=== PATIENT | female | born 1985 | race Caucasian/White ===

== ENCOUNTER 2020-10-02 06:41 | Inpatient (IN) | payer SELFPAY ==
[2020-10-02 06:50] VITALS: BMI 24.3
[2020-10-02] MEDS ORDERED: Ondansetron PF 4 MG/2 ML Vial IVP PRN (08:49)
[2020-10-02] MEDS ORDERED: Ondansetron ODT 4 MG TAB PO PRN (08:49)
--- NOTE | 2020-10-02 09:23 | PDOC.HHP ---
Hospitalist HPI - History of Present Illness Right hand pain History of Present Illness: PCP: None The patient is a 34-year-old female with no significant past medical history that presented to the emergency department via transfer from [facility] for the above complaint. The patient reports that she suffered a feral cat bite to her right hand approximately 2 to 3 days ago. She states that the cat was wild, and is unable to locate the cat. She reports that over the past several days, she has experienced increased swelling redness and pain to her right thumb hand and forearm. She denies any fever or chills. She denies any abdominal pain, nausea, vomiting, diarrhea. She has no other complaints at this time. In the [facility], the patient received vancomycin IVPB and Unasyn IVPB and 1 L normal saline. She was given rabies immunoglobulin and started on the rabies vaccination schedule. She also had her tetanus updated. The ER MD consulted Dr. Mitchell, who is a hand surgeon that recommended starting Zosyn and continuing vancomycin. He agreed to see the patient this afternoon and take the patient to the OR for incision and drainage and debridement. ED Course: Direct admit to the floor. Hospitalist ROS - Review of Systems Constitutional: denies: fever, chills Respiratory: denies: cough, shortness of breath, hemoptysis Cardiovascular: denies: chest pain, palpitations, edema, light headedness Gastrointestinal: denies: nausea, vomiting, abdominal pain, diarrhea Genitourinary: denies: dysuria, hematuria Musculoskeletal: reports: hand pain (Right hand pain, primarily with thumb movement.) Skin: reports: rash (Redness right palm extending up the palmar surface of the forearm) Neurological: denies: weakness, incoordination All other systems reviewed; all pertinent +/- noted in HPI/Subj - Medication Medications: None Allergies: No known drug allergies Hospitalist History - Past Medical History Source: patient, family, RN notes reviewed Cardiac: reports: no pertinent history Pulmonary: reports: no pertinent history [employer]ER: reports: no pertinent history Gastrointestinal: reports: no pertinent history - Past Surgical History Past Surgical History: reports: no pertinent history - Family History Other Family History: Noncontributory to this case. - Social History Smoking Status: Never smoker Alcohol: reports: None Drugs: reports: none Living Situation: With Family Activity level: independent ambulation - Exam General Appearance: NAD, awake alert. negative: ill appearing Eye: anicteric sclera ENT: normocephalic atraumatic Neck: supple, symmetric Heart: RRR, no murmur, no gallops, no rubs, normal peripheral pulses Respiratory: CTAB, no wheezes, no rales, no ronchi, normal chest expansion, no tachypnea Gastrointestinal: soft, non-tender, non-distended, no bruit, no guarding, no rigidity Extremities: negative: no edema (Right hand swelling and erythema primarily to the thenar eminence, streaking up the palmar aspect of the forearm to the elbow, decreased range of motion of the thumb, mildly tender to palpation. 2 puncture wounds on the thenar eminence of the right hand.) Neurological: no weakness Psychiatric: normal affect, A&O x 3 Hospitalist Results - Labs Lab results: WBCs 20.6 CRP 5.87 Sodium 132 Potassium 4.2 Hospitalist H&P A/P - Problem (1) Tenosynovitis of right hand Code(s): M65.9 - SYNOVITIS AND TENOSYNOVITIS, UNSPECIFIED Status: Acute (2) Cellulitis of right hand Code(s): L03.113 - CELLULITIS OF RIGHT UPPER LIMB Status: Acute (3) Cat bite Code(s): W55.01XA - BITTEN BY CAT, INITIAL ENCOUNTER Status: Acute (4) Leukocytosis Code(s): D72.829 - ELEVATED WHITE BLOOD CELL COUNT, UNSPECIFIED Status: Acute - Plan Plan: 34/F with no significant PMH presents for right hand pain. Admit to surgical floor, inpatient status. Expected length of stay greater than 2 midnights. Presented stable vital signs. WBCs 20.6, CRP 5.87 Received tetanus, rabies immunoglobulin and initial rabies vaccination shot. #Tenosynovitis of the right hand Dr. Mitchell consulted by [facility], agreed to take to OR today. NPO, last meal at 0030. Continue Vancomycin, add Zosyn IVPB. continue rabies vaccination schedule. IVF, morphine and zofran prn. Repeat CRP, BMP and CBC in am. Consult WCT and PT. #Cellulitis of right hand Plan as stated in problem #1 #Cat bite Continue rabies vaccination schedule. First dose on 1110 Second dose on 1113 Third dose on 1117 Fourth dose on 1124 #Leukocytosis Likely related to problem #1 and #2. SCDs for DVT prophylaxis. Pepcid for GI prophylaxis. Full code. Discussed the case with Dr. Alicea.
[2020-10-02] MEDS: Piperacillin/Tazobactam 3.375 GM in Sodium Chloride 0.9% 100 ML IVPB SCH ×3 (10:20→22:50)
[2020-10-02] MEDS: Famotidine/PF 20 mg/2ml Vial SLOW IVP SCH ×2 (10:20→20:17)
[2020-10-02] MEDS: Sodium Chloride 0.9% 1,000 ML IV SCH ×2 (10:20→17:49)
[2020-10-02] MEDS ORDERED: Ondansetron PF 4 MG/2 ML Vial ONE (11:02)
[2020-10-02] MEDS ORDERED: PROPOFOL 200 MG/20 ML VIAL ONE (11:02)
[2020-10-02] MEDS ORDERED: Lidocaine 1% PF 5 ML VIAL ONE (11:02)
[2020-10-02] MEDS ORDERED: Dexamethasone 20 MG/5 ML VIAL ONE (11:02)
[2020-10-02 11:18] LABS: Anion Gap 11 mmol/L (10-20); BUN (Urea Nitrogen) 8 mg/dL (7.0-18.7); Calc. Creatinine Clearance 122 mL/min (70-130); Calcium 8.5 mg/dL (7.8-10.44); Carbon Dioxide 23 mmol/L (22-29); Chloride 107 mmol/L (98-107); Estimated GFR-MDRD Greater than 90; Glucose 88 mg/dL (70-105); Potassium 3.6 mmol/L (3.5-5.1); Sodium 137 mmol/L (136-145)
[2020-10-02] MEDS: Morphine 2 MG/ML VIAL SLOW IVP PRN ×2 (12:44→16:18)
[2020-10-02] MEDS ORDERED: Fentanyl 100 MCG/2 ML VIAL ONE (14:25)
[2020-10-02] MEDS ORDERED: Lidocaine 1% w/Epinephrine 1:100K 20 ML VIAL ONE (14:44)
--- NOTE | 2020-10-02 15:16 | CON ---
DATE OF CONSULTATION: 10/02/2020 HISTORY OF PRESENT ILLNESS: The patient is a 34-year-old female who was admitted earlier this morning after suffering a cat bite to a cat not belonging to her. However, the patient stated that animal control is involved with the case. She was seen in the ER early this morning, given antibiotics. She denies any other injury to the right hand. Physical Exam: Clinically she is resting comfortably in bed. She is awake and alert and oriented. She does not appear to be in any pain. right hand and wrist: She is guarded with the right hand. Right hand and wrist showed 2 puncture wounds over the thenar musculature. All fingers are neurovascularly intact and all flexor and extensor functions are grossly tact. No clinical signs of compartment syndrome. There is redness overlying the thenar musculature and extending down into the forearm. Fingers were neurovascularly intact. Compartments were all soft. ASSESSMENT AND PLAN: Right hand infection secondary to cat bite. Surgical and nonsurgical treatment options were reviewed and discussed by me with the patient today at bedside. I discussed all risks and goals associated with surgery. I recommended incision, drianage and washout of the right hand infection. The patient reports understanding and agrees to proceed. She will remain admitted to the medicine service and continue with IV antibiotics. Job ID: [id number] [facility]
--- NOTE | 2020-10-02 15:33 | OP ---
DATE OF PROCEDURE: 10/02/2020 PREOPERATIVE DIAGNOSIS: Right hand infection status post cat bite. POSTOPERATIVE DIAGNOSIS: Right hand infection status post cat bite. PROCEDURE PERFORMED: Incision and drainage and washout of right hand. CONCERT OR LECTURE HALL MANAGER: Rodrigo Contreras. TOURNIQUET TIME: 6 minutes. ESTIMATED BLOOD LOSS: Less than 10 mL. FINDINGS: Two puncture wounds over the thenar musculature region in the right hand. There was murky fluid within the subcutaneous tissue. SPECIMENS: Culture and sensitivities. IMPLANTS: Quarter-inch Corine drain. CONDITION: Stable. INDICATIONS FOR PROCEDURE: The patient is a 34-year-old Vietnamese-speaking female who is accompanied by a male partner. She suffered a cat bite, that cat did not belong to her, it occurred on Thursday. She was admitted to the hospital early this morning, started on IV antibiotics. She was admitted under Medicine Service. She is resting comfortably in bed. On physical examination, she has redness and pain over the thenar muscular region and some mild streaking of the forearm. There is no adenopathy. All fingers are neurovascularly intact and all flexor and extensor tendon functions are grossly intact. There are no clinical signs of compartment syndrome. I recommended incision, drainage, and washout. I discussed all risks and goals associated with the surgery. I did inform the patient and her male partner that there is possibility she may need one more surgery and we would have to leave the Corine drain in place after today's surgery and potentially remove it. She will need to stay in the hospital for a few days for IV antibiotics. They voiced understanding and agreed to proceed with surgery. DESCRIPTION OF PROCEDURE: She was brought to the operating room and placed supine on the operating room table. Time-out was confirmed. Right upper extremity tourniquet was applied. General anesthesia was induced by the anesthesia team. Right upper extremity was exsanguinated by gravity. Tourniquet was inflated to 200 mmHg. There was local anesthetic infiltrated in the puncture wounds over the thenar muscular region. Then, they were opened bluntly and carefully using tenotomy scissors. Cultures were sent. 3 L of sterile saline were used to irrigate the wound and a quarter-inch [place] drain was placed within the puncture wounds in order to prevent premature closure. Tourniquet was deflated. All fingers including the thumb were vascularly intact. After tourniquet was deflated, a bulky dressing along with 4x4x, ABD pads, and Kerlix rolls applied over the wound, hand, and wrist. She was extubated and transported back to the recovery area in stable condition. INSTRUCTIONS: She will continue with IV antibiotics. I will follow her closely and plan on drain removal tomorrow, also perform hand soaks beginning tomorrow morning in clean warm tap water mixed with Hibiclens and she may do these 3 to 4 times a day for 30- to 40-minute interval and the nursing staff may change the dressing changes after each soak. Job ID: [id number]
[2020-10-02] MEDS: Vancomycin HCl 750 MG in Sodium Chloride 0.9% 250 ML 250 ML IVPB SCH ×2 (15:45→20:17)
[2020-10-02] MEDS ORDERED: Morphine 4 MG/ML VIAL SLOW IVP PRN (16:36)
[2020-10-02] MEDS ORDERED: HYDROcodone/Acetaminophen 5/325 mg Tablet PO PRN ×2 (16:45)
[2020-10-02] MEDS ORDERED: Ketorolac Tromethamine 30 MG/ML VIAL IVP SCH (18:00)
[2020-10-02] MEDS: Ibuprofen 200 MG TAB PO PRN (18:18)
[2020-10-02] MEDS: Acetaminophen 325 MG TAB PO PRN (18:18)
[2020-10-03] MEDS: Piperacillin/Tazobactam 3.375 GM in Sodium Chloride 0.9% 100 ML IVPB SCH ×4 (03:32→21:48)
[2020-10-03 06:07] LABS: #Lymphocytes 1.3 thou/uL (1.20-3.40); #Monocytes 0.3 thou/uL (0.11-0.59); #Neutrophils 13.4 thou/uL (1.40-6.50); %Basophils 0.1 % (0.0-1.0); %Eosinophils 0.1 % (0.0-10.0); %Lymphocytes 8.9 % (21.0-51.0); %Monocytes 1.8 % (0.0-10.0); %Neutrophils 89.2 % (42.0-75.0); Hemoglobin 10.6 g/dL (12.0-16.0); Mean Corpuscular HGB CONC 32.2 g/dL (32.0-36.0); Mean Corpuscular Hemoglobin 28.4 pg (27.0-31.0); Mean Corpuscular Volume 88.1 fL (78.0-98.0); Mean Platelet Volume 8.9 fL (7.4-10.4); Platelet Count 205 thou/uL (130-400); Red Blood Cell (RBC) Count 3.74 mill/uL (4.20-5.40)
[2020-10-03] MEDS: Sodium Chloride 0.9% 1,000 ML IV SCH (06:07)
[2020-10-03] MEDS: Vancomycin HCl 750 MG in Sodium Chloride 0.9% 250 ML 250 ML IVPB SCH ×2 (06:07→13:44)
[2020-10-03 06:24] LABS: Anion Gap 11 mmol/L (10-20); BUN (Urea Nitrogen) 6 mg/dL (7.0-18.7); Calc. Creatinine Clearance 134 mL/min (70-130); Calcium 8.3 mg/dL (7.8-10.44); Carbon Dioxide 21 mmol/L (22-29); Chloride 109 mmol/L (98-107); Estimated GFR-MDRD Greater than 90; Glucose 116 mg/dL (70-105); Potassium 4.1 mmol/L (3.5-5.1); Sodium 137 mmol/L (136-145)
--- NOTE | 2020-10-03 07:26 | PDOC.HOSPP ---
- Subjective Encounter Date: 10/03/20 Encounter Time: 08:21 Subjective: Patient seen and examined. No new complaints. No overnight events. The patient is smiling and says she is feeling well. She asked about rabies vaccination schedule. She reports pain is well controlled to her hand. She denies any weakness. Denies any fever, chills, abdominal pain, N/V. Denies Chest pain or SOB. Request stools softners as needed. - Objective Vital Signs & Weight: Vital Signs (12 hours) Temp Pulse Resp BP Pulse Ox 10/03/20 04:07 98.1 F 60 16 115/64 96 10/03/20 00:10 97.7 F 67 16 120/76 98 10/02/20 20:50 98.3 F 77 16 106/68 97 10/02/20 20:00 97 Weight Weight 120 lb 6.4 oz I&O: 10/02/20 10/03/20 10/04/20 06:59 06:59 06:59 Intake Total 3880 Balance 3880 Result Diagrams: 10/03/20 05:43 10/03/20 05:43 Hospitalist ROS - Review of Systems Constitutional: denies: fever, chills Respiratory: denies: cough, shortness of breath, hemoptysis Cardiovascular: denies: chest pain, palpitations, edema Gastrointestinal: denies: nausea, vomiting, abdominal pain, diarrhea, melena, hematochezia Genitourinary: denies: dysuria, hematuria Neurological: denies: weakness, change in speech All other systems reviewed; all pertinent +/- noted in HPI/Subj - Medication Medications: Active Medications Generic Name Dose Route Start Last Admin Trade Name Juanq PRN Reason Stop Dose Admin Acetaminophen 650 mg 10/02/20 08:49 10/02/20 18:18 Acetaminophen 325 Mg Tab PO 650 mg Q4H PRN Administration Headache/Fever/Mild Pain (1-3) Hydrocodone Bitart/Acetaminophen 2 tab 10/02/20 16:45 10/02/20 16:43 Hydrocodone/Acetaminophen 5/325 Mg Tablet PO 2 tab Q6H PRN Administration Pain Famotidine 20 mg 10/02/20 09:00 10/02/20 20:17 Famotidine/Pf 20 Mg/2ml Vial SLOW IVP 20 mg Q12HR GABBY Administration Piperacillin Sod/Tazobactam 100 mls @ 200 mls/hr 10/02/20 10:00 10/03/20 03:32 Sod 3.375 gm/ Sodium Chloride IVPB 100 mls 0400,1000,1600,2200 GABBY Administration Vancomycin HCl 750 mg/ Sodium 250 mls @ 250 mls/hr 10/02/20 13:00 10/03/20 06:07 Chloride IVPB 250 mls 0500,1300,2100 GABBY Administration Sodium Chloride 1,000 mls @ 100 mls/hr 10/02/20 09:00 10/03/20 06:07 Normal Saline 0.9% IV 1,000 mls .Q10H GABBY Administration Ibuprofen 400 mg 10/02/20 16:38 10/02/20 18:18 Ibuprofen 200 Mg Tab PO 400 mg Q4H PRN Administration Pain Ondansetron HCl 4 mg 10/02/20 08:49 10/02/20 16:44 Ondansetron Pf 4 Mg/2 Ml Vial IVP 4 mg Q6H PRN Administration Nausea/Vomiting - Exam General Appearance: NAD, awake alert. negative: ill appearing General - other findings: smiling Eye: anicteric sclera ENT: normocephalic atraumatic Neck: supple, symmetric Heart: RRR, no murmur, no gallops, no rubs, normal peripheral pulses Respiratory: CTAB, no wheezes, no rales, no ronchi, normal chest expansion Gastrointestinal: soft, non-tender, normal bowel sounds, no guarding Extremities: no cyanosis Extremities - other findings: right hand wrapped kerlex, fingers full ROM, sensation intact Neurological: cranial nerve grossly intact, no focal deficits Psychiatric: normal affect, A&O x 3 Hosp A/P (1) Tenosynovitis of right hand Code(s): M65.9 - SYNOVITIS AND TENOSYNOVITIS, UNSPECIFIED Status: Acute (2) Cellulitis of right hand Code(s): L03.113 - CELLULITIS OF RIGHT UPPER LIMB Status: Acute (3) Cat bite Code(s): W55.01XA - BITTEN BY CAT, INITIAL ENCOUNTER Status: Acute (4) Leukocytosis Code(s): D72.829 - ELEVATED WHITE BLOOD CELL COUNT, UNSPECIFIED Status: Acute - Plan 34/F with no significant PMH presents for right hand pain. Admit to surgical floor, inpatient status. Expected length of stay greater than 2 midnights. Presented stable vital signs. WBCs 20.6, CRP 5.87 Received tetanus, rabies immunoglobulin and initial rabies vaccination shot. #Tenosynovitis of the right hand POD#1 D/C IVF, tolerating po intake well. Continue Vancomycin and Zosyn IVPB. Next rabies vaccine shot due on - Analgesia and antiemetics prn WCT per nursing, hot soaks with dressing changes. #Cellulitis of right hand Plan as stated in problem #1 #Cat bite Rabies vaccination schedule. First dose on 1110 Second dose on 1113 Third dose on 1117 Fourth dose on 1124 #Leukocytosis Likely related to problem #1 and #2. Improved, down to 15 from 20.6 SCDs for DVT prophylaxis. Pepcid for GI prophylaxis. Full code. Discussed the case with Dr. Alicea.
[2020-10-03] MEDS ORDERED: Senokot S 8.6-50 MG TAB PO PRN (08:21)
[2020-10-03] MEDS: Famotidine/PF 20 mg/2ml Vial SLOW IVP SCH ×2 (08:21→20:12)
[2020-10-03] MEDS ORDERED: FLU VACC QS2020-21(6MOS UP)/PF 60 MCG/0.5 ML SYRINGE IM ONE (12:00)
[2020-10-03 13:27] LABS: Vancomycin, Trough 8.9 ug/mL
[2020-10-03] MEDS: Vancomycin 1 GM in Premix Bag 1 BAG IVPB SCH (20:12)
[2020-10-04] MEDS: Piperacillin/Tazobactam 3.375 GM in Sodium Chloride 0.9% 100 ML IVPB SCH ×4 (03:58→21:12)
[2020-10-04] MEDS: Vancomycin 1 GM in Premix Bag 1 BAG IVPB SCH (03:58)
[2020-10-04 06:56] LABS: #Basophils 0.1 thou/uL (0.0-0.2); #Eosinphils 0.1 thou/uL (0.0-0.7); #Lymphocytes 3.6 thou/uL (1.20-3.40); #Monocytes 0.7 thou/uL (0.11-0.59); #Neutrophils 9.1 thou/uL (1.40-6.50); %Basophils 0.8 % (0.0-1.0); %Eosinophils 0.6 % (0.0-10.0); %Lymphocytes 26.7 % (21.0-51.0); %Neutrophils 66.9 % (42.0-75.0); Hemoglobin 10.1 g/dL (12.0-16.0); Mean Corpuscular HGB CONC 32.9 g/dL (32.0-36.0); Mean Corpuscular Hemoglobin 28.5 pg (27.0-31.0); Mean Corpuscular Volume 86.6 fL (78.0-98.0); Mean Platelet Volume 8.2 fL (7.4-10.4); Platelet Count 212 thou/uL (130-400); Red Blood Cell (RBC) Count 3.53 mill/uL (4.20-5.40); White Blood Cell (WBC) Count 13.5 thou/uL (4.8-10.8)
--- NOTE | 2020-10-04 07:20 | PDOC.HOSPP ---
- Subjective Encounter Date: 10/04/20 Encounter Time: 08:13 Subjective: Patient seen and examined. Reports some pleuritic pain to right ribs, intermittent with deep inhalation. Has no cardiovascular risk factors. Denies heart palpitations, light headedness, SOB, wheezing or cough/hemoptysis. Denies any abdominal pain, N/V or hematachezia/melena. Denies any dysuria or hematuria. Discussed likely costochondritis, has not had any ibuprofen for 24 hours, will give toradol IV x 1. Says her hand feels good, only pain when she uses it to reposition herself on the bed, says she gets throbbing pain for a minute. Denies numbness, tingling or weakness. Pain is well controlled. Discussed rabies vacci nation schedule and second injection is scheduled for tomorrow. Discussed improved WBCs. - Objective Vital Signs & Weight: Vital Signs (12 hours) Temp Pulse Resp BP Pulse Ox 10/04/20 03:56 98.6 F 77 16 118/76 96 10/03/20 23:42 98.0 F 80 16 131/76 99 10/03/20 20:00 99 10/03/20 19:26 98.2 F 70 16 130/82 99 Weight Admit Weight 120 lb 6.4 oz Weight 120 lb 6.4 oz I&O: 10/03/20 10/04/20 10/05/20 06:59 06:59 06:59 Intake Total 3880 2040 Balance 3880 2040 Result Diagrams: 10/04/20 06:49 10/04/20 06:49 Hospitalist ROS - Review of Systems Constitutional: denies: fever, chills Respiratory: denies: cough, shortness of breath, hemoptysis Cardiovascular: reports: chest pain (pleuritic). denies: palpitations, edema, light headedness Gastrointestinal: denies: nausea, vomiting, abdominal pain, diarrhea Genitourinary: denies: dysuria, hematuria Neurological: denies: weakness, incoordination - Medication Medications: Active Medications Generic Name Dose Route Start Last Admin Trade Name Freq PRN Reason Stop Dose Admin Acetaminophen 650 mg 10/02/20 08:49 10/02/20 18:18 Acetaminophen 325 Mg Tab PO 650 mg Q4H PRN Administration Headache/Fever/Mild Pain (1-3) Hydrocodone Bitart/Acetaminophen 2 tab 10/02/20 16:45 10/02/20 16:43 Hydrocodone/Acetaminophen 5/325 Mg Tablet PO 2 tab Q6H PRN Administration Pain Famotidine 20 mg 10/02/20 09:00 10/03/20 20:12 Famotidine/Pf 20 Mg/2ml Vial SLOW IVP 20 mg Q12HR GABBY Administration Piperacillin Sod/Tazobactam 100 mls @ 200 mls/hr 10/02/20 10:00 10/04/20 03:58 Sod 3.375 gm/ Sodium Chloride IVPB 100 mls 0400,1000,1600,2200 GABBY Administration Vancomycin HCl 1 gm/ Device 200 mls @ 200 mls/hr 10/03/20 21:00 10/04/20 03:58 IVPB 200 mls 0500,1300,2100 GABBY Administration Ibuprofen 400 mg 10/02/20 16:38 10/02/20 18:18 Ibuprofen 200 Mg Tab PO 400 mg Q4H PRN Administration Pain Morphine Sulfate 3 mg 10/02/20 16:36 10/03/20 12:53 Morphine 4 Mg/Ml Vial SLOW IVP 3 mg Q4H PRN Administration BREAKTHU PAIN Ondansetron HCl 4 mg 10/02/20 08:49 10/02/20 16:44 Ondansetron Pf 4 Mg/2 Ml Vial IVP 4 mg Q6H PRN Administration Nausea/Vomiting - Exam General Appearance: NAD, awake alert. negative: ill appearing General - other findings: comfortable, smiling Eye: anicteric sclera ENT: normocephalic atraumatic, moist mucosa Neck: supple, symmetric Heart: RRR, no murmur, no gallops, no rubs, normal peripheral pulses Respiratory: CTAB, no wheezes, no rales, no ronchi, normal chest expansion, no tachypnea Gastrointestinal: soft, non-tender, normal bowel sounds, no guarding, no rigidity Extremities: no cyanosis Extremities - other findings: RH kerlix gauze, palpable radial pulses, cap refill brisk, wiggles fingers Neurological: no focal deficits Psychiatric: normal affect, A&O x 3 Hosp A/P (1) Tenosynovitis of right hand Code(s): M65.9 - SYNOVITIS AND TENOSYNOVITIS, UNSPECIFIED Status: Acute (2) Cellulitis of right hand Code(s): L03.113 - CELLULITIS OF RIGHT UPPER LIMB Status: Acute (3) Cat bite Code(s): W55.01XA - BITTEN BY CAT, INITIAL ENCOUNTER Status: Acute (4) Leukocytosis Code(s): D72.829 - ELEVATED WHITE BLOOD CELL COUNT, UNSPECIFIED Status: Acute (5) Chest pain, pleuritic Code(s): R07.81 - PLEURODYNIA Status: Acute - Plan 34/F with no significant PMH presents for right hand pain. Admit to surgical floor, inpatient status. Expected length of stay greater than 2 midnights. Presented stable vital signs. WBCs 20.6, CRP 5.87 Received tetanus, rabies immunoglobulin and initial rabies vaccination shot. #Tenosynovitis of the right hand POD#2 Wound CX gram negative rods. D/C Vancomycin Continue Zosyn Next rabies vaccine shot#2 tomorrow. Analgesia and antiemetics prn WCT per nursing, hot soaks with dressing changes. #Cellulitis of right hand Plan as stated in problem #1 #Cat bite Rabies vaccination schedule. First dose on 1110 Second dose on 1113 Third dose on 1117 Fourth dose on 1124 #Leukocytosis Likely related to problem #1 and #2. Trending down at 13.5. #Pleuritic chest pain VSS, Exam benign, no CV risk factors, no signs of delayed transfusion reaction. EKG NSR. Likely costochondritis. Treat with toradol x 1 dose. SCDs for DVT prophylaxis. Pepcid for GI prophylaxis. Full code. Discussed the case with Dr. Alicea.
[2020-10-04 07:25] LABS: Anion Gap 12 mmol/L (10-20); BUN (Urea Nitrogen) 10 mg/dL (7.0-18.7); Calc. Creatinine Clearance 110 mL/min (70-130); Calcium 8.3 mg/dL (7.8-10.44); Carbon Dioxide 23 mmol/L (22-29); Chloride 107 mmol/L (98-107); Estimated GFR-MDRD Greater than 90; Glucose 86 mg/dL (70-105); Potassium 3.7 mmol/L (3.5-5.1); Sodium 138 mmol/L (136-145)
[2020-10-04] MEDS ORDERED: Ketorolac Tromethamine 30 MG/ML VIAL IVP SCH (07:30)
--- NOTE | 2020-10-04 08:18 | PRG ---
DATE OF SERVICE: 10/03/2020 SUBJECTIVE: The patient is seen today, postoperative day #1, incision and drainage and washout of right thumb, right hand infection secondary to a cat bite. She is doing well. She noticed significant improvement regarding overall right hand pain, undergoing surgery. Her pain is currently well controlled. She denies any numbness or tingling in the fingers of the right hand. She denies any fevers. PHYSICAL EXAMINATION: GENERAL: The patient is awake, alert, and oriented x3 and resting comfortably in bed. RIGHT HAND/WRIST: There is some redness and streaking of the forearm, which has improved compared to a preoperative examination; the wounds appeared to be healing well and there is no purulent drainage noted; she is nontender to palpation over the flexure tendons and able to flex and extend all fingers without difficulty or limitation; all fingers are neurovascularly intact and there is no adenopathy appreciated in the epitrochlear or axillary regions. Culture and sensitivities are pending. ASSESSMENT AND PLAN: Postoperative day #1, status post incision and drainage and washout, right hand, secondary to a cat bite. The patient's [place] drain was removed today. I instructed her to continue with hand soaks. She should continue with IV antibiotics. I would keep her in the hospital for another 2 to 3 days for IV antibiotics, certainly tailor the antibiotics according to the culture and sensitivity reports. If the patient continues to improve, she may follow up with me on an outpatient basis. My office is [phone]. She will certainly be discharged on oral antibiotics for a minimum of 7 to 10 days. Job ID: [id number]
[2020-10-04] MEDS: Famotidine/PF 20 mg/2ml Vial SLOW IVP SCH ×2 (08:24→21:10)
[2020-10-04] MEDS: Ibuprofen 200 MG TAB PO PRN (21:12)
[2020-10-04] MEDS: Acetaminophen 325 MG TAB PO PRN (21:13)
[2020-10-05] MEDS: Piperacillin/Tazobactam 3.375 GM in Sodium Chloride 0.9% 100 ML IVPB SCH ×4 (04:29→22:06)
[2020-10-05 05:19] LABS: #Basophils 0.1 thou/uL (0.0-0.2); #Eosinphils 0.1 thou/uL (0.0-0.7); #Lymphocytes 2.8 thou/uL (1.20-3.40); #Monocytes 0.7 thou/uL (0.11-0.59); #Neutrophils 5.7 thou/uL (1.40-6.50); %Eosinophils 1.2 % (0.0-10.0); %Lymphocytes 29.5 % (21.0-51.0); %Monocytes 7.2 % (0.0-10.0); Mean Corpuscular HGB CONC 33.4 g/dL (32.0-36.0); Mean Corpuscular Hemoglobin 28.4 pg (27.0-31.0); Mean Corpuscular Volume 85.2 fL (78.0-98.0); Mean Platelet Volume 8.4 fL (7.4-10.4); Platelet Count 230 thou/uL (130-400); RBC Distribution Width 11.9 % (11.5-14.5); Red Blood Cell (RBC) Count 3.51 mill/uL (4.20-5.40); White Blood Cell (WBC) Count 9.3 thou/uL (4.8-10.8)
[2020-10-05 05:40] LABS: Anion Gap 19 mmol/L (10-20); BUN (Urea Nitrogen) 7 mg/dL (7.0-18.7); Calc. Creatinine Clearance 127 mL/min (70-130); Calcium 7.5 mg/dL (7.8-10.44); Carbon Dioxide 20 mmol/L (22-29); Chloride 109 mmol/L (98-107); Estimated GFR-MDRD Greater than 90; Glucose 74 mg/dL (70-105); Potassium 3.3 mmol/L (3.5-5.1); Sodium 145 mmol/L (136-145)
--- NOTE | 2020-10-05 07:37 | PDOC.HOSPP ---
- Subjective Encounter Date: 10/05/20 Encounter Time: 07:51 Subjective: Patient seen and examined. No new complaints. No overnight events. Patient says pain well controlled. Denies any fever, chills, abdominal pain, N/V/D. No chest pain, SOB, or headaches. Discussed wound cx results and possibly being discharged tomorrow on oral antibiotics. - Objective Vital Signs & Weight: Vital Signs (12 hours) Temp Pulse Resp BP Pulse Ox 10/05/20 06:45 97.7 F 73 13 178/80 H 92 L 10/04/20 20:00 96 Weight Admit Weight 120 lb 6.4 oz Weight 120 lb 6.4 oz I&O: 10/04/20 10/05/20 10/06/20 06:59 06:59 06:59 Intake Total 2039 1789 Balance 2039 1789 Result Diagrams: 10/05/20 04:54 10/05/20 04:54 Hospitalist ROS - Review of Systems Constitutional: denies: fever, chills Respiratory: denies: cough, shortness of breath, hemoptysis Cardiovascular: denies: chest pain, palpitations, edema, light headedness Gastrointestinal: denies: nausea, vomiting, abdominal pain, diarrhea, constipation Genitourinary: denies: dysuria, hematuria Musculoskeletal: denies: hand pain Neurological: denies: weakness, incoordination All other systems reviewed; all pertinent +/- noted in HPI/Subj - Medication Medications: Active Medications Generic Name Dose Route Start Last Admin Trade Name Freq PRN Reason Stop Dose Admin Acetaminophen 650 mg 10/02/20 08:49 10/04/20 21:13 Acetaminophen 325 Mg Tab PO 650 mg Q4H PRN Administration Headache/Fever/Mild Pain (1-3) Hydrocodone Bitart/Acetaminophen 2 tab 10/02/20 16:45 10/02/20 16:43 Hydrocodone/Acetaminophen 5/325 Mg Tablet PO 2 tab Q6H PRN Administration Pain Famotidine 20 mg 10/02/20 09:00 10/04/20 21:10 Famotidine/Pf 20 Mg/2ml Vial SLOW IVP 20 mg Q12HR GABBY Administration Piperacillin Sod/Tazobactam 100 mls @ 200 mls/hr 10/02/20 10:00 10/05/20 04:29 Sod 3.375 gm/ Sodium Chloride IVPB 100 mls 0400,1000,1600,2200 GABBY Administration Ibuprofen 400 mg 10/02/20 16:38 10/04/20 21:12 Ibuprofen 200 Mg Tab PO 400 mg Q4H PRN Administration Pain Morphine Sulfate 3 mg 10/02/20 16:36 10/03/20 12:53 Morphine 4 Mg/Ml Vial SLOW IVP 3 mg Q4H PRN Administration BREAKTHU PAIN Ondansetron HCl 4 mg 10/02/20 08:49 10/02/20 16:44 Ondansetron Pf 4 Mg/2 Ml Vial IVP 4 mg Q6H PRN Administration Nausea/Vomiting - Exam General Appearance: NAD, awake alert. negative: ill appearing Eye: anicteric sclera Heart: RRR, no murmur, no gallops, no rubs, normal peripheral pulses Respiratory: CTAB, no wheezes, no rales, no ronchi, normal chest expansion, no tachypnea Gastrointestinal: soft, non-tender, no guarding, no rigidity Extremities - other findings: right hand kerlix, full ROM, flexion and extensor tendons intact Neurological: no focal deficits Psychiatric: normal affect, A&O x 3 Hosp A/P (1) Tenosynovitis of right hand Code(s): M65.9 - SYNOVITIS AND TENOSYNOVITIS, UNSPECIFIED Status: Acute (2) Cellulitis of right hand Code(s): L03.113 - CELLULITIS OF RIGHT UPPER LIMB Status: Acute (3) Cat bite Code(s): W55.01XA - BITTEN BY CAT, INITIAL ENCOUNTER Status: Acute (4) Leukocytosis Code(s): D72.829 - ELEVATED WHITE BLOOD CELL COUNT, UNSPECIFIED Status: Acute (5) Chest pain, pleuritic Code(s): R07.81 - PLEURODYNIA Status: Acute - Plan 34/F with no significant PMH presents for right hand pain. Admit to surgical floor, inpatient status. Expected length of stay greater than 2 midnights. Presented stable vital signs. WBCs 20.6, CRP 5.87 Received tetanus, rabies immunoglobulin and initial rabies vaccination shot. Blood pressure elevated and sp02 lower per documented VS last night. On assessment, patient has no signs of any distress. Pain well controlled, afebrile. Discussed with morning nurse, she agrees, will recheck VS this am and call to update me. #Tenosynovitis of the right hand POD#3 Wound CX Pasteurella Multocida Continue Zosyn Next rabies vaccine shot#2 today Analgesia and antiemetics prn WCT per nursing, hot soaks with dressing changes. Possible d/c tomorrow on oral abx. #Cellulitis of right hand Plan as stated in problem #1 #Cat bite Rabies vaccination schedule. First dose on 1110 Second dose on 1113 Third dose on 1117 Fourth dose on 1124 #Leukocytosis trending down, today 9.3 #Pleuritic chest pain resolved. SCDs for DVT prophylaxis. Pepcid for GI prophylaxis. Full code. Discussed the case with Dr. Alicea.
[2020-10-05] MEDS ORDERED: Rabies Vaccine Human 2.5 UNITS VIAL IM ONE (09:30)
[2020-10-05] MEDS: Famotidine/PF 20 mg/2ml Vial SLOW IVP SCH ×2 (10:08→22:05)
[2020-10-05] MEDS: Ibuprofen 200 MG TAB PO PRN (14:09)
[2020-10-06] MEDS: Piperacillin/Tazobactam 3.375 GM in Sodium Chloride 0.9% 100 ML IVPB SCH ×2 (04:02→10:14)
[2020-10-06] MEDS: Ibuprofen 200 MG TAB PO PRN ×2 (04:09→12:54)
[2020-10-06 06:27] LABS: #Basophils 0.1 thou/uL (0.0-0.2); #Eosinphils 0.2 thou/uL (0.0-0.7); #Lymphocytes 2.4 thou/uL (1.20-3.40); #Monocytes 0.7 thou/uL (0.11-0.59); #Neutrophils 6.1 thou/uL (1.40-6.50); %Basophils 1.1 % (0.0-1.0); %Eosinophils 2.5 % (0.0-10.0); %Lymphocytes 25.5 % (21.0-51.0); %Monocytes 7.1 % (0.0-10.0); %Neutrophils 63.8 % (42.0-75.0); Hemoglobin 10.8 g/dL (12.0-16.0); Mean Corpuscular HGB CONC 33.6 g/dL (32.0-36.0); Mean Corpuscular Volume 86.5 fL (78.0-98.0); Mean Platelet Volume 8.6 fL (7.4-10.4); Platelet Count 271 thou/uL (130-400); RBC Distribution Width 11.9 % (11.5-14.5); Red Blood Cell (RBC) Count 3.71 mill/uL (4.20-5.40); White Blood Cell (WBC) Count 9.5 thou/uL (4.8-10.8)
[2020-10-06 06:50] LABS: Anion Gap 12 mmol/L (10-20); BUN (Urea Nitrogen) 10 mg/dL (7.0-18.7); Calc. Creatinine Clearance 114 mL/min (70-130); Calcium 8.8 mg/dL (7.8-10.44); Carbon Dioxide 22 mmol/L (22-29); Chloride 106 mmol/L (98-107); Estimated GFR-MDRD Greater than 90; Glucose 98 mg/dL (70-105); Potassium 4.1 mmol/L (3.5-5.1); Sodium 136 mmol/L (136-145)
--- NOTE | 2020-10-06 07:15 | PDOC.HOSPP ---
- Subjective Encounter Date: 10/06/20 Encounter Time: 07:54 Subjective: Patient seen and examined. No new complaints. No overnight events. Denies any fever or chills. Reports hand is feeling good. Denies abominal pain, N/V/D. We discussed that she can discharge home today on oral antibiotics. - Objective Vital Signs & Weight: Vital Signs (12 hours) Temp Pulse Resp BP Pulse Ox 10/05/20 21:45 98.0 F 60 14 118/74 98 Weight Admit Weight 120 lb 6.4 oz Weight 120 lb 6.4 oz I&O: 10/05/20 10/06/20 10/07/20 06:59 06:59 06:59 Intake Total 1790 Balance 1790 Result Diagrams: 10/06/20 05:54 10/06/20 05:54 Hospitalist ROS - Review of Systems Constitutional: denies: fever, chills Respiratory: denies: cough, shortness of breath Cardiovascular: denies: chest pain, palpitations Gastrointestinal: denies: nausea, vomiting, abdominal pain, diarrhea Genitourinary: denies: dysuria, hematuria All other systems reviewed; all pertinent +/- noted in HPI/Subj - Medication Medications: Active Medications Generic Name Dose Route Start Last Admin Trade Name Freq PRN Reason Stop Dose Admin Acetaminophen 650 mg 10/02/20 08:49 10/04/20 21:13 Acetaminophen 325 Mg Tab PO 650 mg Q4H PRN Administration Headache/Fever/Mild Pain (1-3) Hydrocodone Bitart/Acetaminophen 2 tab 10/02/20 16:45 10/02/20 16:43 Hydrocodone/Acetaminophen 5/325 Mg Tablet PO 2 tab Q6H PRN Administration Pain Famotidine 20 mg 10/02/20 09:00 10/05/20 22:05 Famotidine/Pf 20 Mg/2ml Vial SLOW IVP 20 mg Q12HR GABBY Administration Piperacillin Sod/Tazobactam 100 mls @ 200 mls/hr 10/02/20 10:00 10/06/20 04:02 Sod 3.375 gm/ Sodium Chloride IVPB 100 mls 0400,1000,1600,2200 GABBY Administration Ibuprofen 400 mg 10/02/20 16:38 10/06/20 04:09 Ibuprofen 200 Mg Tab PO 400 mg Q4H PRN Administration Pain Morphine Sulfate 3 mg 10/02/20 16:36 10/03/20 12:53 Morphine 4 Mg/Ml Vial SLOW IVP 3 mg Q4H PRN Administration BREAKTHU PAIN Ondansetron HCl 4 mg 10/02/20 08:49 10/02/20 16:44 Ondansetron Pf 4 Mg/2 Ml Vial IVP 4 mg Q6H PRN Administration Nausea/Vomiting Sodium Chloride 10 ml 10/02/20 08:49 10/05/20 22:06 Flush - Normal Saline 10 Ml Syringe IVF 10 ml PRN PRN Administration Saline Flush - Exam General Appearance: NAD, awake alert. negative: ill appearing Heart: RRR, no murmur, no gallops, no rubs, normal peripheral pulses Respiratory: CTAB, no wheezes, no rales, no ronchi, normal chest expansion Gastrointestinal: soft, non-tender Extremities - other findings: right hand kerlix, full ROM flexor/extensor tendons, sensation intact Psychiatric: normal affect, A&O x 3 Hosp A/P (1) Tenosynovitis of right hand Code(s): M65.9 - SYNOVITIS AND TENOSYNOVITIS, UNSPECIFIED Status: Acute (2) Cellulitis of right hand Code(s): L03.113 - CELLULITIS OF RIGHT UPPER LIMB Status: Acute (3) Cat bite Code(s): W55.01XA - BITTEN BY CAT, INITIAL ENCOUNTER Status: Acute (4) Leukocytosis Code(s): D72.829 - ELEVATED WHITE BLOOD CELL COUNT, UNSPECIFIED Status: Acute (5) Chest pain, pleuritic Code(s): R07.81 - PLEURODYNIA Status: Acute - Plan 34/F with no significant PMH presents for right hand pain. Admit to surgical floor, inpatient status. Expected length of stay greater than 2 midnights. Presented stable vital signs. WBCs 20.6, CRP 5.87 Received tetanus, rabies immunoglobulin and initial rabies vaccination shot. Blood pressure elevated and sp02 lower per documented VS last night. On assessment, patient has no signs of any distress. Pain well controlled, afebrile. Discussed with morning nurse, she agrees, will recheck VS this am and call to update me. #Tenosynovitis of the right hand POD#4 Wound CX Pasteurella Multocida Continue Zosyn Analgesia and antiemetics prn WCT per nursing, hot soaks with dressing changes. D/c today on Augmentin and tramadol Rx per patient request - [facility] Aware search no findings. #Cellulitis of right hand Plan as stated in problem #1 #Cat bite Rabies vaccination schedule. First dose on 1110 Second dose on 1113 Third dose on 1117 Fourth dose on 1124 #Leukocytosis trending down, today 9.3 #Pleuritic chest pain resolved. SCDs for DVT prophylaxis. Pepcid for GI prophylaxis. Full code. Discussed the case with Dr. Alicea.
[2020-10-06] MEDS: Famotidine/PF 20 mg/2ml Vial SLOW IVP SCH (10:15)
[2020-10-06 12:26] VITALS: BP 134/82; TEMP 98
--- NOTE | 2020-10-06 13:20 | DIS ---
DATE OF ADMISSION: 10/02/2020 DATE OF DISCHARGE: 10/06/2020 PRIMARY CARE PHYSICIAN: None. DIAGNOSES: 1. Tenosynovitis of the right hand. 2. Cellulitis of the right hand. 3. Cat bite. 4. Leukocytosis. 5. Coronavirus testing negative. CONDITION: Stable. I examined the patient. The day of discharge, vital signs stable. Denies any chest pain, heart palpitations, shortness of breath. Reports right hand pain controlled. Denies any weakness or loss of function. S1, S2 auscultated. Lungs clear bilaterally. Palpable radial pulses to the right upper extremity. Flexor and extensor tendon intact. Brisk cap refill. CONSULTS: Dr. Austen Mitchell, Hand Surgery. HOSPITAL COURSE: The patient are a 34-year-old female with no past medical history that presented for right hand pain and swelling two days status post feral cat bite. The patient presented to the emergency department with stable vital signs. White blood cell count was 20.6. CRP was 5.87. X-ray was negative for any acute fracture. The patient's tetanus was updated and she was started on the rabies vaccination series and was given rabies immunoglobulin. Dr. Mitchell with Hand Surgery was consulted. The patient was started on IV Vancomycin and Zosyn.The patient underwent an incision and drainage with washout of the affected extremity on 10/02/2020. The patient continued broad spectrum antibiotics until wound cultures returned. Wound cultures grew out Pasteurella multocida, therefore, vancomycin was discontinued. The patient continued on Zosyn IV. Per recommendation from Hand Surgery, the patient was continued on IV antibiotics for the next 2-3 days. During her stay, her white count trended down from 15 down to 9.5 at discharge. Her CRP trended from 7.13 down to 4.28. The patient remained afebrile with stable vital signs throughout her stay. The patient is to be discharged home on oral antibiotics for 10 days per Hand Surgery and follow up with a hand surgeon in a week. MEDICATIONS AT DISCHARGE: 1. Augmentin 875/125 one tab p.o. b.i.d. x10 days, quantity 20. 2. Tramadol 50 mg p.o. q.6 p.r.n. pain, quantity 20. FOLLOWUP: 1. Primary care provider. 2. Dr. Austen Mitchell. DIET: Regular. No restrictions. ACTIVITY: As tolerated. DISPOSITION: Home. TIME SPENT: Time spent on this discharge was less than 20 minutes. Job ID: [id number] MTDD
--- NOTE | 2020-10-09 02:20 | EKG ---
Test Reason : Blood Pressure : / mmHG Vent. Rate : 075 BPM Atrial Rate : 075 BPM P-R Int : 132 ms QRS Dur : 076 ms QT Int : 376 ms P-R-T Axes : 063 081 004 degrees QTc Int : 419 ms Normal sinus rhythm Normal ECG Confirmed by MYRNA TAPIA MD ([id number]) on 10/09/2020 2:20:30 AM Referred By: DONNA Confirmed By:MYRNA TAPIA MD
--- NOTE | 2020-10-09 08:05 | PQF ---
CLINICAL DOCUMENTATION CLARIFICATION FORM: Dear : Austen Mitchell Date / Time: 10/09/20 0804 Please exercise your independent, professional judgment in responding to the clarification form. Clinical indicators are provided on the bottom of this form for your review In your clinical opinion based on clinical findings below can you please further specify the depth of I&D: Please check appropriate box(es): Depth: [ x] Skin [ x ] Subcutaneous [ x] Fascia [ ] Muscle [ ] Tendon [ ] Bone [ ] Other procedure, please specify [ ] Unable to determine Physician Signature: Date/Time: For continuity of documentation, please document condition throughout progress notes and discharge summary. Thank You. To be completed by CDI/Coding staff for physician review: Present Clinical Indicators - Signs / Symptoms / Labs Results and Location in Medical Record [X] Findings: Two puncture wounds over the thenar musculature region in the right hand Operative report Dr Mitchell 10/02 [X] opened bluntly and carefully using tenotomy scissor Operative report Dr Mitchell 10/02 [X] 3L of sterile saline were used to irrigate the wound and a quarter-inch lakisha drain was placed within the puncture wounds in order to prevent premature closure Operative report Dr Mitchell 10/02 Present Risk Factors Results and Location in Medical Record [X] Right hand infection s/p Cat bite Operative report Dr Mitchell 10/02 [X] Cellulitis of hand Operative report Dr Mitchell 10/02 [X] Tenosynovitis of hand Operative report Dr Mitchell 10/02 Present Treatments Results and Location in Medical Record [X] Incision and drainage and washout of right hand Operative report Dr Mitchell 10/02 [X] Hand Trauma Consult Consult Dr. Mitchell 10/02 [X] Zosyn 3.375gm IV JAN 30 [X] Vancomycin 750gmg IV JAN 30 [facility] Director Signature: Andra Vazquez Phone #: ext [phone] Date/Time: 10/09/2020 0804 This is a permanent part of the Medical Record [facility]
== END 2020-10-06 14:29 | disposition home or self-care (01) | DRG 580 ==
LOC: SURG A 06:41
PROVIDERS: ADMIT Internal Medicine; ATTEND Internal Medicine
PROC: 0J9J0ZZ Drainage of Right Hand Subcutaneous Tissue and Fascia, Open Approach (ICD-10-PCS; 2020-10-02)
PROC: 3E0234Z Introduction of Serum, Toxoid and Vaccine into Muscle, Percutaneous Approach (ICD-10-PCS; principal; 2020-10-05)
DX: S61.451A Open bite of right hand, initial encounter (principal); L03.113 Cellulitis of right upper limb; M65.9 Synovitis and tenosynovitis, unspecified; Z20.828 Contact with and (suspected) exposure to other viral communicable diseases; R07.81 Pleurodynia; W55.01XA Bitten by cat, initial encounter; Z23 Encounter for immunization
CPT/HCPCS: 36415; 80048; 80202; 85025; 86140; 87070; 87077; 87186; 87205; 90675; 93005; 93010; J1100; J1885; J2270; J2405; J2543; J2704; J3010; J3370; J3490; J7050; S0028